=== PATIENT | female | born 1990 | race Caucasian/White ===

== ENCOUNTER → 2016-12-25 | Outpatient (CLI) | payer OTHER ==
[2016-12-29 10:15] LABS: BARLEY <0.10 kU/L (Class 0); CASHEW <0.10 kU/L (Class 0); CHICKEN <0.10 kU/L (Class 0); CHOCOLATE <0.10 kU/L (Class 0); CODFISH <0.10 kU/L (Class 0); CORN <0.10 kU/L (Class 0); EGG WHITE <0.10 kU/L (Class 0); MILK <0.10 kU/L (Class 0); OAT <0.10 kU/L (Class 0); ORANGE <0.10 kU/L (Class 0); PEANUT <0.10 kU/L (Class 0); PORK IGE <0.10 kU/L (Class 0); POTATO <0.10 kU/L (Class 0); RAST IGE 12 IU/mL (0-100); SCALLOP <0.10 kU/L (Class 0); SHRIMP <0.10 kU/L (Class 0); SOYBEAN <0.10 kU/L (Class 0); TOMATO <0.10 kU/L (Class 0); WALNUT <0.10 kU/L (Class 0); WHEAT <0.10 kU/L (Class 0); YEAST <0.10 kU/L (Class 0)
== END | disposition home or self-care (01) ==
LOC: LAB 16:47
PROVIDERS: ATTEND Nurse Practitioner Occupational Health
DX: J45.909 Unspecified asthma, uncomplicated (principal); J30.81 Allergic rhinitis due to animal (cat) (dog) hair and dander; Z91.09 Other allergy status, other than to drugs and biological substances; Z88.9 Allergy status to unspecified drugs, medicaments and biological substances
CPT/HCPCS: 36415; 82784; 86001

== ENCOUNTER → 2017-04-01 | Outpatient (CLI) | payer OTHER ==
[2017-04-01] MEDS: IV RINGERS,LACTATED 1000ML 1,000 ML IV ×4 (11:58→12:38)
== END | disposition home or self-care (01) ==
LOC: OPS 11:20
DX: E86.0 Dehydration (principal)
CPT/HCPCS: 96360; 96361; J7120

== ENCOUNTER → 2017-04-02 | Outpatient (CLI) | payer OTHER ==
[2017-04-02] MEDS: IV RINGERS,LACTATED 1000ML 1,000 ML IV ×4 (14:22→15:01)
== END | disposition home or self-care (01) ==
LOC: OPS 14:03
DX: E86.0 Dehydration (principal)
CPT/HCPCS: 96360; 96361; J7120

== ENCOUNTER → 2018-05-21 | Outpatient (CLI) | payer OTHER ==
[2018-02-05 14:00] VITALS: BP 108/57
[~2018-05-21] MED LIST: ALPR0.5T PO; CEFD300C PO; DEXT5TAB27 PO; DOXY100C14 PO; FEXO180T81 PO; L-NO1TBD5 PO; LEXAPRO10 MG PO
--- NOTE | 2018-05-21 12:45 | RAD ---
EXAM: Maxillofacial bone CT without contrast. HISTORY: Sinusitis. TECHNIQUE: Computed tomographic images of the maxillofacial bones were obtained without contrast. *One or more of the following individualized dose reduction techniques were utilized for this examination: 1. Automated exposure control. 2. Adjustment of the mA and/or kV according to patient size. 3. Use of iterative reconstruction technique. COMPARISON: None. FINDINGS: There is no sinus opacification or air-fluid level. The ostiomeatal units are patent. There is a left troy bullosa and minimal nasal septal deviation. There is a tiny inferior left maxillary sinus mucous retention cyst. There is no sinus wall erosion or thickening. The orbits, mastoid air cells and visualized portions the brain and calvarium are unremarkable. IMPRESSION: No evidence of acute or chronic sinusitis. Electronically signed by: Deanna Sauer MD (05/21/2018 12:40 PM) [place] [id number]
== END | disposition home or self-care (01) ==
LOC: CT 12:04
PROVIDERS: ATTEND Family Medicine
DX: J34.2 Deviated nasal septum (principal); J34.1 Cyst and mucocele of nose and nasal sinus
CPT/HCPCS: 70486

== ENCOUNTER → 2018-07-08 | Day surgery (SDC) | payer OTHER ==
[~2018-07-08] MED LIST changes: +DEXAMETHASONE SOD PHOS 20 MG/5 ML VIAL. ONE; +EPINEPHrine NASAL 30 MG/30 ML BOTTLE ONE; +EPINEPHrine VIAL 30 MG/30 ML VIAL ONE; +GLYCOPYRROLATE 1 MG/5 ML VIAL. ONE; +HYDROmorphone 2 MG/ML VIAL IV PRN; +IV RINGERS,LACTATED 1000ML 1,000 ML IV SCH; +KETOROLAC 30 MG/ML INJ FOR OR. INJ ONE; +L-NO1TBD18 PO; +LEVO5TAB29 PO; +LIDOCAINE 1%/EPI 1:100,000 20 ML VIAL. ONE; +LIDOCAINE 2% PF 5 ML VIAL. ONE; +MIDAZOLAM HCL/PF 2 MG/2 ML VIAL. ONE; +MONT10TA9 PO; +MORPHINE SULFATE 2 MG/ML VIAL. IV PRN; +MUPIROCIN 2 % NASAL OINTMENT 22GM TUBE. ONE; +NEOSTIGMINE METHYLSULFATE 5 MG/5 ML SYRINGE. ONE; +ONDANSETRON PF 4 MG/2 ML VIAL. IV PRN; +ONDANSETRON PF 4 MG/2 ML VIAL. ONE; +OXYMETAZOLINE 0.05% NASAL SPRAY 30ML BOTTLE. NS ONE; +PHENYLEPHRINE 0.25% NASAL SPRAY 15ML BOTTLE. NS ONE; +PHENYLEPHRINE in 0.9% NACL PF 1 MG/10 ML SYRINGE. IV ONE; +PROCHLORPERAZINE 10 MG/2 ML VIAL. ONE; +PROPOFOL 20 ML IV ONE; +ROCURONIUM 50 MG/5 ML VIAL. ONE; +SUVO20TA PO; +TRAZ-86 PO; +fentaNYL PF VIAL 100 MCG/2 ML VIAL IV PRN; +fentaNYL PF VIAL 100 MCG/2 ML VIAL ONE; +oxyCODONE/APAP 5/325 1 TAB TABLET PO ONE
[2018-07-08 11:26] LABS: U PREG PATIENT NEGATIVE (NEG)
--- NOTE | 2018-07-08 19:36 | PDOC4 ---
IMMEDIATE POST OP NOTE Date: Jul 08, 2018 Pre-Op Diagnosis DEVIATED NASAL SEPTUM, NASAL VALVE STENOSIS, BILATERAL INFERIOR TURBINATE HYPERTROPHY, LEFT ALLISON BULLOSA, RECURRENT ACUTE SINUSITIS. Post-Op Diagnosis SAME ABOVE Procedure Performed OPEN SEPTORHINOPLASTY WITH RECONSTRUCTION OF NASAL VALVE AND NASAL SEPTUM, BILATERAL INFERIOR TURBINOPLASTY, FUNCTIONAL ENDOSCOPIC SINUS SURGERY TO INCLUDE BILATERAL MEDIAL MAXILLARY ANTROSTOMY AND LEFT ALLISON BULLOSA RESECTION Surgeon DR. BRAD COYNE Right Of Way Cutter NONE Anesthesiologist DR. WOOTEN Anesthesia Type: General Blood Loss 150 ML Specimens Obtained NONE Findings 1. SEPTUM DEVIATED TO RIGHT 2. NARROW INTERNAL NASAL VALVE BILATERALLY 3. MILD NASAL DORSAL HUMP 4. BILATERAL INFERIOR TURBINATE HYPERTROPHY 5. LEFT ALLISON BULLOSA 6. EXCESS COLUMELLAR SHOW ON LATERAL VIEW 7. MILD MUCOID DISCHARGE WITHIN BILATERAL MAXILLARY SINUS Complications NONE Operative Note #[id number] BRAD COYNE MD Jul 08, 2018 19:36
[2018-07-08] MEDS: fentaNYL PF VIAL 100 MCG/2 ML VIAL IV PRN ×2 (19:56→21:30)
--- NOTE | 2018-07-08 20:06 | OP ---
DATE OF SURGERY: 07/08/2018 PREOPERATIVE DIAGNOSES: Deviated nasal septum, nasal valve stenosis. bilateral inferior turbinate hypertrophy, left troy bullosa, recurrent acute sinusitis. POSTOPERATIVE DIAGNOSES: Deviated nasal septum, nasal valve stenosis. bilateral inferior turbinate hypertrophy, left troy bullosa, recurrent acute sinusitis. PROCEDURE PERFORMED: Open septorhinoplasty with reconstruction of the internal nasal valve and nasal septum, bilateral inferior turbinoplasty, functional endoscopic sinus surgery to include bilateral medial maxillary antrostomy and left troy bullosa resection. SURGEON: Gabrielle Alarcon MD ANESTHESIA: General endotracheal anesthesia. ANESTHESIOLOGIST: Dr. Shin. ESTIMATED BLOOD LOSS: 150 mL. SPECIMENS OBTAINED: None. INDICATIONS FOR SURGERY: The patient is a 28-year-old female with a history of chronic nasal airway obstruction that has been refractory to medical management. 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 The patient also suffers from recurrent acute sinusitis, suffering 4-5 infections annually. The patient was found on CT imaging to have a left troy bullosa and very narrow ostiomeatal units bilaterally. A decision was made the patient will undergo the above procedure after risks, benefits, and alternatives of surgery were thoroughly discussed with the patient and informed consent was obtained. INTRAOPERATIVE FINDINGS: 1. Septum was deviated to the right. 2. Narrow internal nasal valve bilaterally. 3. Mild nasal dorsal hump. 4. Bilateral inferior turbinate hypertrophy. 5. Left troy bullosa. 6. Excess columellar show on lateral view of the nose. 7. Mild mucoid discharge within the bilateral maxillary sinuses. DESCRIPTION OF THE PROCEDURE: The patient was brought back to the room per Anesthesia and intubated in standard fashion. The patient was then turned 90 degrees in the room. The nasal vestibular hairs were trimmed and the nasal septum and anterior inferior turbinates and planned columellar and lateral incisions were injected with 1% lidocaine with 1:100,000 epinephrine. Afrin-soaked pledgets were then inserted in the nasal cavity bilaterally. The patient was then prepped and draped in a standard fashion. Using an 11 followed by a 15 blade, an inverted V columellar incision was made. I then used sharp scissors to complete the marginal incision and elevate the skin and soft tissue envelope of the lower lateral crura bilaterally. I continued my dissection along the mid vault and bony dorsum using sharp dissection and the caudal elevator. An osteotome was used to elevate the periosteum off of the bony nasal dorsum. The patient was found preoperatively to have a very narrow mid vault. The lower lateral crura were then from the caudal septum and I elevated the mucoperichondrial flaps off the left and right cartilaginous and bony septum. The patient had a significant septal deviation to the right. Using a D knife, I cut out a piece of cartilage that was harvested, leaving a 1.5 cm caudal and 2 cm dorsal strut intact. This was harvested and placed at the back table. I also used sharp scissors superiorly and osteotome along the nasal floor to remove the deviated portions of cartilage and bone including a large septal spur that was deviated to the right and a small septal spur that was entering into the left nasal airway. After this was completed, I further used Lila forceps superiorly along the bone that was obstructing my view of the middle meatus. After this was completed, I placed all of the cartilage and bone that was harvested at the back table. I then the lower lateral crura from the dorsal septum. Using an osteotome I took down a slight bony dorsal hump and using a #11 blade, I took down the slight dorsal hump of the cartilage. I then harvested burrer marker axle grafts bilaterally that was placed between the upper lateral cartilage in the dorsal septum bilaterally to widen the nasal valve on this side. These were sutured into place using a horizontal mattress suture of 5-0 PDS. I then trimmed the caudal septum as there was excess columellar show on the lateral view. I trimmed it about 3 mm. I then reset the lower lateral crura at the level of the caudal septum doing a caudal setback suture to bring up the caudal septum and the columella so there is less columellar show. This was performed with a lower lateral crural flaring suture that went into the septum to perform the caudal setback. After this was completed, inter and intradermal sutures were used to reset the nasal tip. I further trimmed the nasal dorsum and also rasped the bones of the nasal dorsum. Dpit-eam-fhir osteotomies were then performed bilaterally to close the open book deformity and after this was completed, there was a slight cartilaginous dorsal hump. This was trimmed again as well as a piece of crushed cartilage was placed along the bony dorsum to give a straight appearance to the nose. After this was completed, I closed the columellar incision with simple interrupted sutures of 5-0 Prolene. The marginal incision laterally was closed with simple interrupted sutures of 4-0 chromic. I then performed a bilateral functional endoscopic sinus surgery by using a 0 degree scope to visualize the patient's left nasal cavity. I injected the attachment of the middle turbinate, the lateral nasal wall and the anterior aspect of the middle turbinate with 1% lidocaine with 1:100,000 epinephrine. I then used a sickle knife to cut into the anterior lateral aspect of the inferior turbinate, which there was a small troy bullosa. The lateral wall was resected using sharp dissection. I then identified the uncinate process. Using a backbiter forceps I resected the most inferior portion of the vertical process of the uncinate. The vertical and horizontal process of the uncinate were then medialized and completely resected. The natural ostia of maxillary sinus was identified. This was widened both anteriorly and posteriorly until it was widely patent using sharp dissection. The middle turbinate was then bolgerized to the septum. I then used the 0 degree scope to visualize the patient's right nasal cavity. I again injected the attachment of the middle turbinate to lateral nasal wall. There was a very floppy middle turbinate on this side from the previous septal deviation. This was medialized. I again identified the uncinate process. Using a backbiter forceps I resected the most inferior portion of the vertical process of the uncinate. The vertical and horizontal processes of the uncinate were then medialized and completely resected. The natural os to the maxillary sinus was widened both anteriorly and posteriorly until it was widely patent. The middle turbinate was again bolgerized to the septum. I then performed a bilateral inferior turbinoplasty. Beginning on the left side, I used a microdebrider to cut into the anterior aspect of the inferior turbinate. I then did a submucosal resection of the excess mucosa along this region. I then further used the microdebrider to resect the excess mucosa along the entire length of the inferior turbinate along its lateral and inferior border, also resected the posterior mulberry tissue. A caudal elevator was then used to elevate the residual mucosa off the most inferior portion of the turbinate bone. A conservative resection of the most inferior portion of the turbinate bone was performed using Ji-Cut forceps. I then trimmed and redraped the residual mucosa on the residual turbinate bone. The residual turbinate bone was outfractured. Suction Bovie electrocautery was used posteriorly and along the entire length of the inferior turbinate for hemostasis. A piece of silicone sheeting was then cut to size. This was placed between the middle turbinate and lateral nasal wall along the anterior septum bilaterally. This was sutured to the anterior septum using 3-0 Prolene suture. The nose was then taped with Mastisol and Steri-Strips and a thermal splint was applied. The patient was turned back over to Anesthesia and extubated without complication. All sponge, needle and instrument counts correct at the end of the case. COMPLICATIONS: None. DISPOSITION: Stable and transferred to recovery room. GABRIELLE ALARCON MD DR: FANG/roger JOB#: [id number] / [id number] SHANAE
[2018-07-08] MEDS: PROCHLORPERAZINE 10 MG/2 ML VIAL. IV PRN ×2 (20:24→20:43)
[2018-07-08 21:27] VITALS: BP 114/61
== END | disposition home or self-care (01) ==
LOC: SURG 10:28
PROVIDERS: ATTEND Otolaryngology
DX: J34.2 Deviated nasal septum (principal); J34.89 Other specified disorders of nose and nasal sinuses; J34.3 Hypertrophy of nasal turbinates; J01.81 Other acute recurrent sinusitis; Z88.1 Allergy status to other antibiotic agents; Z88.8 Allergy status to other drugs, medicaments and biological substances; Z98.890 Other specified postprocedural states; Z79.899 Other long term (current) drug therapy; Z88.0 Allergy status to penicillin; Z72.89 Other problems related to lifestyle; Z83.3 Family history of diabetes mellitus
CPT/HCPCS: 20912; 30140; 30465; 31240; 31256; 81025; A7015; J0690; J0780; J1100; J2001; J2250; J2370; J2405; J2704; J2710; J3010; J3490; J7030; J7120; J0171; J1885

== ENCOUNTER → 2018-07-20 | Outpatient (CLI) | payer OTHER ==
[~2018-07-20] VITALS: Ht 167.6 cm; Wt 53.1 kg
[~2018-07-20] MED LIST changes: -DEXAMETHASONE SOD PHOS 20 MG/5 ML VIAL. ONE; -EPINEPHrine NASAL 30 MG/30 ML BOTTLE ONE; -EPINEPHrine VIAL 30 MG/30 ML VIAL ONE; -GLYCOPYRROLATE 1 MG/5 ML VIAL. ONE; -HYDROmorphone 2 MG/ML VIAL IV PRN; -KETOROLAC 30 MG/ML INJ FOR OR. INJ ONE; -LIDOCAINE 1%/EPI 1:100,000 20 ML VIAL. ONE; -LIDOCAINE 2% PF 5 ML VIAL. ONE; -MIDAZOLAM HCL/PF 2 MG/2 ML VIAL. ONE; -MORPHINE SULFATE 2 MG/ML VIAL. IV PRN; -MUPIROCIN 2 % NASAL OINTMENT 22GM TUBE. ONE; -NEOSTIGMINE METHYLSULFATE 5 MG/5 ML SYRINGE. ONE; -ONDANSETRON PF 4 MG/2 ML VIAL. IV PRN; -ONDANSETRON PF 4 MG/2 ML VIAL. ONE; -OXYMETAZOLINE 0.05% NASAL SPRAY 30ML BOTTLE. NS ONE; -PHENYLEPHRINE 0.25% NASAL SPRAY 15ML BOTTLE. NS ONE; -PHENYLEPHRINE in 0.9% NACL PF 1 MG/10 ML SYRINGE. IV ONE; -PROCHLORPERAZINE 10 MG/2 ML VIAL. ONE; -PROPOFOL 20 ML IV ONE; -ROCURONIUM 50 MG/5 ML VIAL. ONE; -fentaNYL PF VIAL 100 MCG/2 ML VIAL IV PRN; -fentaNYL PF VIAL 100 MCG/2 ML VIAL ONE; -oxyCODONE/APAP 5/325 1 TAB TABLET PO ONE
[2018-07-20 12:00] VITALS: BP 91/52
== END | disposition home or self-care (01) ==
LOC: OPS 11:22
PROVIDERS: ATTEND Otolaryngology
DX: E86.0 Dehydration (principal); Z79.899 Other long term (current) drug therapy; Z72.89 Other problems related to lifestyle; Z98.890 Other specified postprocedural states
CPT/HCPCS: 96360; J7120

== ENCOUNTER → 2018-09-06 | Outpatient (CLI) | payer OTHER ==
[2018-07-23 14:53] VITALS: BP 112/58
[~2018-09-06] MED LIST changes: -IV RINGERS,LACTATED 1000ML 1,000 ML IV SCH
[2018-09-06 17:11] LABS: ALBUMIN 4.2 g/dL (3.4-5.0); ALBUMIN/GLOBULIN RATIO 1.5 (1.0-1.7); CALCIUM 9.2 mg/dL (8.5-10.1); CREATININE 0.8 mg/dL (0.6-1.0); GFR 84.8; POTASSIUM 3.9 mmol/L (3.5-5.1); TOTAL BILIRUBIN 0.3 mg/dL (0.2-1.0)
== END | disposition home or self-care (01) ==
LOC: LAB 16:14
PROVIDERS: ATTEND Family Medicine
DX: R53.83 Other fatigue (principal)
CPT/HCPCS: 36415; 80053; 82306; 82607; 82728; 82746; 83540; 83550; 84436; 84443

== ENCOUNTER 2019-01-29 20:40 | Emergency (ER) | payer OTHER ==
[~2019-01-29] VITALS: Ht 167.6 cm; Wt 51.7 kg
[~2019-01-29 20:40] MED LIST changes: +MONT10TA49 PO; -MONT10TA9 PO
[2019-01-29 20:42] VITALS: BP 120/73
--- NOTE | 2019-01-29 21:14 | PHYS DOC ---
Past Medical History Past Medical History: Other Additional Past Medical Histor: INSOMNIA Past Surgical History: Other Additional Past Surgical Histo: SINUS Alcohol Use: Occasionally Drug Use: None Adult General Chief Complaint Chief Complaint: LACERATION/AVULSION HPI HPI Patient is a 28 year old female that presents with a laceration to the chin after she fell and hit her chin on the hardwood floor around 8:30 PM. The patient states she was at her boyfriend's house and that his child admitted a mass on the floor in the floors when she slipped. The patient states she last had a tetanus shot in 2018 so she is up-to-date on her tetanus. The patient states her pain is 5 out of 10 in severity as it is throbbing. Review of Systems Review of Systems Constitutional: Denies fever or chills [] Eyes: Denies change in visual acuity, redness, or eye pain [] HENT: Denies nasal congestion or sore throat [] Respiratory: Denies cough or shortness of breath [] Cardiovascular: No additional information not addressed in HPI [] GI: Denies abdominal pain, nausea, vomiting, bloody stools or diarrhea [] : Denies dysuria or hematuria [] Musculoskeletal: Denies back pain or joint pain [] Integument: Reports laceration to the chin. Neurologic: Denies headache, focal weakness or sensory changes [] Endocrine: Denies polyuria or polydipsia [] Complete systems were reviewed and found to be within normal limits, except as documented in this note. Current Medications Current Medications Current Medications Medications (Trade) Dose Ordered Sig/Rufus Start Time Stop Time Status Last Admin Dose Admin Ketorolac Tromethamine (Toradol) 10 mg 1X ONCE 01/29/19 22:00 01/29/19 22:01 Lidocaine/ Epinephrine (Let Topical) 3 ml 1X ONCE 01/29/19 21:30 01/29/19 21:31 DC 01/29/19 21:34 3 ML Allergies Allergies Allergies Coded Allergies Type Severity Reaction Last Updated Verified amoxicillin Allergy Intermediate Hives 07/23/18 Yes sulfamethoxazole Allergy Intermediate Hives 07/23/18 Yes trimethoprim Allergy Intermediate Hives 07/23/18 Yes prednisolone Allergy Mild 07/23/18 Yes Physical Exam Physical Exam Constitutional: Well developed, well nourished, no acute distress, non-toxic appearance. [] HENT: Normocephalic, atraumatic, bilateral external ears normal, oropharynx moist, no oral exudates, nose normal. No bruising to chin, no mandibular tender ness, patient teeth fit together correctly. Eyes: PERRLA, EOMI, conjunctiva normal, no discharge. [] Neck: Normal range of motion, no tenderness, supple, no stridor. [] Cardiovascular:Heart rate regular rhythm, no murmur [] Lungs & Thorax: Bilateral breath sounds clear to auscultation [] Skin: Laceration to the chin, 0.5 cm. Back: No tenderness, no CVA tenderness. [] Extremities: No tenderness, no cyanosis, no clubbing, ROM intact, no edema. [] Neurologic: Alert and oriented X 3, normal motor function, normal sensory function, no focal deficits noted. [] Psychologic: Affect normal, judgement normal, mood normal. [] Current Patient Data Vital Signs Vital Signs Date Time Temp Pulse Resp B/P (MAP) Pulse Ox O2 Delivery O2 Flow Rate FiO2 01/29/19 20:42 99.2 79 20 120/73 (89) 99 Room Air 99.2 EKG EKG [] Radiology/Procedures Radiology/Procedures Indication: Chin laceration. Procedure: The patient was placed in the appropriate position and anesthesia around the lac was LET. The area was then cleansed with copious amounts of normal saline.. The laceration was closed with 3 5-0 sutures. The wound area was then dressed with dressing and neosporin. Total repaired wound length: 0.5 cm. The patient tolerated the procedure. Complications: None. Course & Med Decision Making Course & Med Decision Making Pertinent Labs and Imaging studies reviewed. (See chart for details) Will use LET and then suture laceration. Will also give Toradol. Dragon Disclaimer Dragon Disclaimer This electronic medical record was generated, in whole or in part, using a voice recognition dictation system. Departure Departure Impression: Primary Impression: Laceration Disposition: 01 HOME, SELF-CARE Condition: STABLE Referrals: ANA CRISTINA LAURENT MD (PCP) Patient Instructions: Laceration Care, Adult Additional Instructions: Thank you for visiting [facility]. We appreciate you trusting us with your care. If any additional problems come up don't hesitate to return to visit us. Please follow up with your primary care provider so they can plan additional care if needed and know about the problem that you had. If symptoms worsen come back to the Emergency Department. Any concerning symptoms that start such as chest pain, shortness of air, weakness or numbness on one side of the body, running high fevers or any other concerning symptoms return to the ER. Please have your sutures removed in 5-7 days. Please return to ER or go to your primary care provider if you start seeing signs of infection such as redness or drainage. HANNAH NORRIS APRN Jan 29, 2019 21:14
[2019-01-29] MEDS ORDERED: LIDOCAINE/EPI/TETRACAINE TOPICAL GEL 3 ML. TP ONE (21:30)
[2019-01-29] MEDS ORDERED: NEOMY/BACITR/POLYMYXIN OINT PACKET. TP ONE (22:00)
[2019-01-29] MEDS ORDERED: KETOROLAC TROMETHAMINE 10 MG TABLET PO ONE (22:00)
== END 2019-01-29 22:08 | disposition home or self-care (01) ==
LOC: ER 20:40
DX: S01.81XA Laceration without foreign body of other part of head, initial encounter (principal); Z88.1 Allergy status to other antibiotic agents; Z88.2 Allergy status to sulfonamides; Z88.8 Allergy status to other drugs, medicaments and biological substances; W01.198A Fall on same level from slipping, tripping and stumbling with subsequent striking against other object, initial encounter; Y93.89 Activity, other specified; Y92.009 Unspecified place in unspecified non-institutional (private) residence as the place of occurrence of the external cause; Y99.8 Other external cause status
CPT/HCPCS: 12001; 99283

== ENCOUNTER → 2019-02-16 | Outpatient (CLI) | payer OTHER ==
[2019-01-29 20:42] VITALS: BP 120/73
--- NOTE | 2019-02-16 16:36 | RAD ---
INDICATION: Painful intercourse COMPARISON: None. TECHNIQUE: Grayscale and color ultrasound images uterus and adnexa. FINDINGS: Uterus: 76 x 40 x 33 mm. Endometrial Stripe: 5 mm. Right Ovary: 34 x 31 x 22 mm. Left Ovary: 36 x 24 x 22 mm. Vascular flow identified to bilateral ovaries. IMPRESSION: Vascular flow seen to the bilateral ovaries. Uterus is morphologically normal. Electronically signed by: Jason Alarcon MD (02/16/2019 4:33 PM) [facility]
== END | disposition home or self-care (01) ==
LOC: US 15:48
PROVIDERS: ATTEND Obstetrics & Gynecology
DX: N94.10 Unspecified dyspareunia (principal); Z20.2 Contact with and (suspected) exposure to infections with a predominantly sexual mode of transmission
CPT/HCPCS: 76856

== ENCOUNTER → 2019-06-17 | Outpatient (CLI) | payer OTHER ==
[~2019-06-17] MED LIST changes: +TRAZ-123 PO; -TRAZ-86 PO
[2019-06-17 13:59] LABS: BASO % 0 % (0-3); EOS % 0 % (0-3); HEMATOCRIT 41.5 % (36.0-47.0); HEMOGLOBIN 14.2 g/dL (12.0-15.5); LYMPH # 1.5 x10^3/uL (1.0-4.8); LYMPH % 12 % (24-48); MEAN CORPUSCULAR HEMOGLOBIN 29 pg (25-35); MEAN CORPUSCULAR HGB CONC 34 g/dL (31-37); MEAN CORPUSCULAR VOLUME 86 fL (79-100); MONO # 0.6 x10^3/uL (0.0-1.1); MONO % 5 % (0-9); NEUT % 82 % (31-73); PLATELET COUNT 226 x10^3/uL (140-400); RED BLOOD COUNT 4.83 x10^6/uL (3.50-5.40); RED CELL DISTRIBUTION WIDTH 13.2 % (11.5-14.5); WHITE BLOOD COUNT 12.2 x10^3/uL (4.0-11.0)
== END | disposition home or self-care (01) ==
LOC: LAB 13:33
PROVIDERS: ATTEND Nurse Practitioner Family
DX: D50.9 Iron deficiency anemia, unspecified (principal)
CPT/HCPCS: 36415; 82607; 82728; 82746; 83540; 83550; 85025

== ENCOUNTER 2019-12-18 16:03 | Emergency (ER) | payer OTHER ==
[~2019-12-18] VITALS: Ht 167.6 cm; Wt 52.0 kg
[2019-12-18] MEDS ORDERED: IV NORMAL SALINE 1000ML BAG 1,000 ML IV ONE ×2 (16:15→18:00)
--- NOTE | 2019-12-18 16:28 | PHYS DOC ---
Past Medical History Past Medical History: Other Additional Past Medical Histor: INSOMNIA Past Surgical History: Other Additional Past Surgical Histo: SINUS Smoking Status: Never Smoker Alcohol Use: Occasionally Drug Use: None General Adult EDM: Chief Complaint: ABDOMINAL PAIN HPI: HPI: Patient is a 29 year old female who presents with states this morning she has been having squeezing umbilical abdominal pain that also radiates down to the right lower quadrant with diarrhea and dark stools. He does not take a lot of ibuprofen or drink a lot of alcohol. She states that she only takes ibuprofen maybe every 2 to 3 weeks when she has a "hang over". Abdomen is soft but tender to umbilical and right lower quadrant. No rebound tenderness. She rates her pain 8 out of 10. Patient has a history of insomnia and kidney stones and colon polyps. She currently takes control and Xanax and trazodone at night. Patient denies vomiting, dizziness, headache, vision changes, numbness or tingling, focal weakness, LOC, dysuria symptoms, back pain, chest pain, shortness of air, fever. Review of Systems: Review of Systems: Constitutional: Denies fever or chills. [] Eyes: Denies change in visual acuity. [] HENT: Denies nasal congestion or sore throat. [] Respiratory: Denies cough or shortness of breath. [] Cardiovascular: Denies chest pain or edema. [] GI: abdominal pain, nausea, denies vomiting, positive bloody stools or positive diarrhea. [] : Denies dysuria. [] Musculoskeletal: Denies back pain or joint pain. [] Integument: Denies rash. [] Neurologic: Denies headache, focal weakness or sensory changes. [] Endocrine: Denies polyuria or polydipsia. [] Lymphatic: Denies swollen glands. [] Psychiatric: Denies depression or anxiety. [] Heart Score: Risk Factors: Risk Factors: DM, Current or recent (<one month) smoker, HTN, HLP, family history of CAD, obesity. Risk Scores: Score 0 - 3: 2.5% MACE over next 6 weeks - Discharge Home Score 4 - 6: 20.3% MACE over next 6 weeks - Admit for Clinical Observation Score 7 - 10: 72.7% MACE over next 6 weeks - Early Invasive Strategies Current Medications: Current Medications Medications (Trade) Dose Ordered Sig/Rufus Start Time Stop Time Status Last Admin Dose Admin Fentanyl Citrate (Fentanyl 2ml Vial) 50 mcg 1X ONCE 12/18/19 16:30 12/18/19 16:31 Ondansetron HCl (Zofran) 4 mg 1X ONCE 12/18/19 16:30 12/18/19 16:31 Sodium Chloride 1,000 ml @ 1,000 mls/hr 1X ONCE 12/18/19 16:15 12/18/19 17:14 Allergies: Allergies: Allergies Coded Allergies Type Severity Reaction Last Updated Verified amoxicillin Allergy Intermediate Hives 07/23/18 Yes sulfamethoxazole Allergy Intermediate Hives 07/23/18 Yes trimethoprim Allergy Intermediate Hives 07/23/18 Yes prednisolone Allergy Mild 07/23/18 Yes Physical Exam: PE: Constitutional: Well developed, well nourished, no acute distress, non-toxic appearance. [] HENT: Normocephalic, atraumatic, bilateral external ears normal, oropharynx moist, no oral exudates, nose normal. [] Eyes: PERRLA, EOMI, conjunctiva normal, no discharge. [] Neck: Normal range of motion, no tenderness, supple, no stridor. [] Cardiovascular:Heart rate regular rhythm, no murmur [] Lungs & Thorax: Bilateral breath sounds clear to auscultation [] Abdomen: Bowel sounds normal, soft, umbilical and right lower tenderness, no masses, no pulsatile masses. [] Skin: Warm, dry, no erythema, no rash. [] Back: No tenderness, no CVA tenderness. [] Extremities: No tenderness, no cyanosis, no clubbing, ROM intact, no edema. [] Neurologic: Alert and oriented X 3, normal motor function, normal sensory function, no focal deficits noted. [] Psychologic: Affect normal, judgement normal, mood normal. [] EKG: EKG: [] Radiology/Procedures: Radiology/Procedures: [] Impression: [facility] [address] [place] [address] IMAGING REPORT Signed PATIENT: NANI VELAEACCOUNT: [id number] : 1990 LOCATION: ER AGE: 29 SEX: F EXAM STATUS: REG ER ORD. PHYSICIAN: BAM KELLER APRN REASON: Abdomen pain, dark stools PROCEDURE: CT ABD PELV W/ IV CONTRST ONLY Exam: CT of abdomen and pelvis with contrast INDICATION: Abdominal pain, dark stools TECHNIQUE: Sequential axial images through the abdomen and pelvis obtained following the administration of 75 mL of Isovue-370 IV contrast. Sagittal and coronal reformatted images were reconstructed from the axial data and reviewed. Comparisons: None FINDINGS: Heart size is normal. No pericardial effusion. Visualized lung bases are clear. No pleural effusion. Liver, spleen, pancreas, gallbladder and adrenals are unremarkable. No perinephric inflammation or hydronephrosis. No renal or ureteral calculi are identified. Bladder is decompressed not well evaluated. Uterus is not enlarged. No abnormal adnexal mass. Large and small bowel are unremarkable. Appendix is normal. No free abdominal air or fluid. No obstruction. Abdominal aorta has a normal course and caliber. No enlarged abdominal lymph nodes are identified. No suspicious osseous lesions or acute fractures. IMPRESSION: No acute process identified within the abdomen or pelvis. Exposure: One or more of the following in the visualized dose reduction techniques were utilized for this examination: 1. Automated exposure control 2. Adjustment of the MA and/or KV according to patient size 3. Use of iterative of reconstructive technique Electronically signed by: Magalie Cummings MD (12/18/2019 6:14 PM) [id number] DICTATED and SIGNED BY: MAGALIE CUMMINGS MD DATE: 12/18/191813 Course & Med Decision Making: Course & Med Decision Making Pertinent Labs and Imaging studies reviewed. (See chart for details) See HPI. Fecal occult stool was attempted but there is no stool in the vault. No hemorrhoids are seen. No masses were felt in the rectal vault. Skin pink warm and dry. Vital signs within normal limits. CT abdomen pelvis shows no acute findings. Blood work is unremarkable. Urinalysis shows no infection. Patient states the pain is better. Patient has received 2 L of normal saline in the emergency room due to dehydration. She also received fentanyl and Bentyl. Patient is referred to GI doctor. [] Neetu Disclaimer: Neetu Disclaimer: This electronic medical record was generated, in whole or in part, using a voice recognition dictation system. Departure Departure Impression: Primary Impression: Abdominal pain Qualified Codes: R10.9 - Unspecified abdominal pain Additional Impression: Diarrhea Qualified Codes: R19.7 - Diarrhea, unspecified Disposition: 01 HOME, SELF-CARE Condition: STABLE Referrals: MIRA BUNCH MD (PCP) DIMITRI FUENTES MD Patient Instructions: Abdominal Pain (Nonspecific), Diarrhea Additional Instructions: Follow-up with your primary care physician or the GI doctor I have referred you to. Drink plenty of fluids. Slowly advance your diet. Scripts Hydrocodone/Apap 5-325 (NORCO 5-325 TABLET) 1 Each Tablet 1 TAB PO PRN Q6HRS PRN for PAIN, #8 TAB 0 Refills Prov: BAM KELLER APRN 12/18/19 Ondansetron (ONDANSETRON ODT) 4 Mg Tab.rapdis 1 TAB PO PRN Q6-8HRS, #16 TAB Prov: BAM KELLER APRN 12/18/19 Justicifation of Admission Dx: Justifications for Admission: Justification of Admission Dx: N/A BAM KELLER APRN Dec 18, 2019 16:28
[2019-12-18] MEDS ORDERED: fentaNYL PF VIAL 100 MCG/2 ML VIAL IVP ONE ×2 (16:30→18:30)
[2019-12-18] MEDS ORDERED: ONDANSETRON PF 4 MG/2 ML VIAL. IVP ONE ×2 (16:30→18:30)
[2019-12-18 16:40] LABS: BASO % 1 % (0-3); EOS # 0.1 x10^3/uL (0.0-0.7); EOS % 2 % (0-3); LYMPH # 1.5 x10^3/uL (1.0-4.8); LYMPH % 23 % (24-48); MEAN CORPUSCULAR HEMOGLOBIN 31 pg (25-35); MEAN CORPUSCULAR HGB CONC 35 g/dL (31-37); MEAN CORPUSCULAR VOLUME 88 fL (79-100); MONO # 0.7 x10^3/uL (0.0-1.1); MONO % 10 % (0-9); NEUT # 4.1 x10^3/uL (1.8-7.7); NEUT % 64 % (31-73); PLATELET COUNT 256 x10^3/uL (140-400); RED CELL DISTRIBUTION WIDTH 13.4 % (11.5-14.5); WHITE BLOOD COUNT 6.4 x10^3/uL (4.0-11.0)
[2019-12-18 16:48] LABS: CALCIUM 8.9 mg/dL (8.5-10.1); CREATININE 0.8 mg/dL (0.6-1.0); GFR 84.2; POTASSIUM 3.9 mmol/L (3.5-5.1)
[2019-12-18 16:49] LABS: PROTHROMBIN TIME PATIENT 12.5 SEC (11.7-14.0)
[2019-12-18 16:53] LABS: ALBUMIN 4.1 g/dL (3.4-5.0); ALBUMIN/GLOBULIN RATIO 1.2 (1.0-1.7); TOTAL BILIRUBIN 0.6 mg/dL (0.2-1.0); TOTAL PROTEIN 7.4 g/dL (6.4-8.2)
[2019-12-18] MEDS ORDERED: IOHEXOL 300 MG/ML 100ML VIAL. IV ONE (17:00)
[2019-12-18] MEDS ORDERED: CONTRAST GIVEN. MC PRN (17:00)
[2019-12-18 17:34] LABS: BILIRUBIN,URINE SMALL (NEG); CLARITY,URINE CLEAR; COLOR,URINE YELLOW; NITRITE,URINE NEGATIVE (NEG); PROTEIN,URINE NEGATIVE (NEG-TRACE); UROBILINOGEN,URINE 0.2 mg/dL (0.2 mg/dL)
[2019-12-18 17:42] LABS: BACTERIA,URINE FEW /HPF (0-FEW); RBC,URINE 0 /HPF (0-2); SQUAMOUS EPITHELIAL CELL,UR FEW /LPF; WBC,URINE OCC /HPF (0-4)
[2019-12-18 18:00] VITALS: BP 119/78
--- NOTE | 2019-12-18 18:17 | RAD ---
Exam: CT of abdomen and pelvis with contrast INDICATION: Abdominal pain, dark stools TECHNIQUE: Sequential axial images through the abdomen and pelvis obtained following the administration of 75 mL of Isovue-370 IV contrast. Sagittal and coronal reformatted images were reconstructed from the axial data and reviewed. Comparisons: None FINDINGS: Heart size is normal. No pericardial effusion. Visualized lung bases are clear. No pleural effusion. Liver, spleen, pancreas, gallbladder and adrenals are unremarkable. No perinephric inflammation or hydronephrosis. No renal or ureteral calculi are identified. Bladder is decompressed not well evaluated. Uterus is not enlarged. No abnormal adnexal mass. Large and small bowel are unremarkable. Appendix is normal. No free abdominal air or fluid. No obstruction. Abdominal aorta has a normal course and caliber. No enlarged abdominal lymph nodes are identified. No suspicious osseous lesions or acute fractures. IMPRESSION: No acute process identified within the abdomen or pelvis. Exposure: One or more of the following in the visualized dose reduction techniques were utilized for this examination: 1. Automated exposure control 2. Adjustment of the MA and/or KV according to patient size 3. Use of iterative of reconstructive technique Electronically signed by: Magalie Goldstein MD (12/18/2019 6:14 PM) [id number]
[2019-12-18] MEDS ORDERED: ONDA4TAB12 PO (18:26)
[2019-12-18] MEDS ORDERED: HYDR-3164 PO ×2 (18:26→18:28)
[2019-12-18] MEDS ORDERED: DICYCLOMINE 20 MG/2 ML VIAL. IM ONE (18:30)
== END 2019-12-18 19:12 | disposition home or self-care (01) ==
LOC: ER 16:03
DX: R10.33 Periumbilical pain (principal); R19.7 Diarrhea, unspecified; R11.0 Nausea; Z98.890 Other specified postprocedural states; Z88.0 Allergy status to penicillin; Z88.2 Allergy status to sulfonamides; Z88.8 Allergy status to other drugs, medicaments and biological substances
CPT/HCPCS: 36415; 74177; 80053; 81001; 81025; 83690; 85025; 85610; 96361; 96372; 96374; 96375; 96376; 99285; J0500; J2405; J3010; J7030; Q9967

== ENCOUNTER → 2020-01-17 | Outpatient (CLI) | payer OTHER ==
[2019-12-18 18:00] VITALS: BP 119/78
[~2020-01-17] MED LIST changes: +HYDR-3164 PO; +ONDA4TAB12 PO
== END | disposition home or self-care (01) ==
LOC: LAB 15:26
PROVIDERS: ATTEND Nurse Practitioner Gerontology
DX: Z01.84 Encounter for antibody response examination (principal)
CPT/HCPCS: 36415; 86706; 87340

== ENCOUNTER → 2020-11-02 | Outpatient (CLI) | payer OTHER ==
[~2020-11-02] MED LIST changes: +DOXY-181 PO; -DOXY100C14 PO
[2020-11-02 12:34] LABS: ALBUMIN 4.1 g/dL (3.4-5.0); ALBUMIN/GLOBULIN RATIO 1.2 (1.0-1.7); CALCIUM 9.1 mg/dL (8.5-10.1); CREATININE 0.9 mg/dL (0.6-1.0); TOTAL BILIRUBIN 0.4 mg/dL (0.2-1.0); TOTAL PROTEIN 7.4 g/dL (6.4-8.2)
== END ==
LOC: LAB 11:50
PROVIDERS: ATTEND Family Medicine
DX: R11.0 Nausea (principal); W46.1XXA Contact with contaminated hypodermic needle, initial encounter
CPT/HCPCS: 36415; 80053; 87902

== ENCOUNTER → 2020-12-07 | Day surgery (SDC) | payer OTHER ==
[~2020-12-07] VITALS: Ht 167.6 cm; Wt 53.6 kg
[~2020-12-07] MED LIST changes: +IV RINGERS,LACTATED 1000ML 1,000 ML IV ONE; +PROPOFOL 10 MG/ML (20ML) VIAL. IV ONE
[2020-12-07 07:58] VITALS: BP 120/70
[2020-12-07 09:33] VITALS: BP 106/76
--- NOTE | 2020-12-10 17:07 | PATHOLOGY ---
[facility] Accession Number: [id number] . 01 Material submitted: . PART A: duodenum - DUODENAL BIOPSIES PART B: colon - RANDOM COLON BIOPSIES . 01 Clinical history: . 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 02 Diagnosis: A. Duodenal biopsies: - No diagnostic abnormalities. . B. Colonic mucosa, random colon biopsies: - No diagnostic abnormalities. . (JPM:devin; 12/10/2020) [facility] 12/10/2020 1458 Local . 02 Comment: Sections of the duodenal biopsy reveal multiple segments of duodenal and small intestine mucosa. Where best oriented, the mucosal villi show no sprue-like changes or significant inflammatory changes. . Sections of the random colon biopsy reveal multiple segments of colonic mucosa containing a few mucosal-associated lymphoid aggregates. There is no evidence of a chronic destructive colitis, lymphocytic colitis, or collagenous colitis. . (JPM:devin; 12/10/2020) . 02 Electronically signed: . Oneil Burleson MD, Pathologist NPI- [id number] . 01 Gross description: . A. Received in formalin labeled "Hoelting, Cintia, duodenal BXs" are multiple barkley-brown soft tissue fragments measuring in aggregate 2.0 x 0.6 x 0.1 cm. The specimen is submitted entirely in A1. . B. Received in formalin labeled "Hoelting, Cintia, random colon BXs" are multiple barkley-brown soft tissue fragments measuring in aggregate 2.3 x 0.7 x 0.1 cm. The specimen is submitted entirely in B1. [place] [place]/08/[place] [facility] 12/08/2020 1120 Local . 02 Pathologist provided ICD-10: R19.7, D64.9, Z86.010 . 02 CPT . 298233, [id number] Specimen Comment: A courtesy copy of this report has been sent to [phone], [phone] Specimen Comment: [id number], Specimen Comment: Report sent to , DR FUENTES / DR BUNCH Performed at: 01 [facility] [address] [place] [address] [address], [place] [id number] MD Isai Núñez MD Phone: [phone] Performed at: 02 [facility] [address] [place], [place] [id number] MD Oneil Burleson MD Phone: [phone]
== END | disposition home or self-care (01) ==
LOC: ENDOS 07:30
PROVIDERS: ATTEND Internal Medicine Gastroenterology
DX: R19.7 Diarrhea, unspecified (principal); K64.0 First degree hemorrhoids; R58 Hemorrhage, not elsewhere classified; K31.89 Other diseases of stomach and duodenum; K63.89 Other specified diseases of intestine; D64.9 Anemia, unspecified; J45.909 Unspecified asthma, uncomplicated; F41.9 Anxiety disorder, unspecified; F32.9 Major depressive disorder, single episode, unspecified; Z86.010 Personal history of colon polyps; Z79.899 Other long term (current) drug therapy; Z98.890 Other specified postprocedural states; Z88.1 Allergy status to other antibiotic agents; Z88.8 Allergy status to other drugs, medicaments and biological substances
CPT/HCPCS: 43239; 45380; 81025; 88305; J2704

== ENCOUNTER → 2020-12-26 | Outpatient (CLI) | payer OTHER ==
[2020-12-07 09:33] VITALS: BP 106/76
[~2020-12-26] MED LIST changes: -IV RINGERS,LACTATED 1000ML 1,000 ML IV ONE; -PROPOFOL 10 MG/ML (20ML) VIAL. IV ONE
== END ==
LOC: LAB 14:33
PROVIDERS: ATTEND Family Medicine
DX: T14.8XXA Other injury of unspecified body region, initial encounter (principal); W46.1XXA Contact with contaminated hypodermic needle, initial encounter; Z77.21 Contact with and (suspected) exposure to potentially hazardous body fluids
CPT/HCPCS: 36415; 86803